=== PATIENT | female | born 1945 | race Caucasian/White ===

== ENCOUNTER → 2016-05-06 | Outpatient (CLI) | payer MEDICARE, OTHER ==
[~2016-05-06] MED LIST: ACHYD1T PO; ACT35T PO; CALC-794 PO; ESTR42.52 VG; FEXO-104 PO; FURO40TA4 PO; KCL20TCR PO; LORA10TA7 PO; LVT.1T PO; MIRT15TA6 PO; MULT-974 PO; OMEG1CAP PO; SULF-222 PO
--- OUTSIDE RECORDS SUMMARY | 2016-05-06 14:15 | XMS REPORT | CCD ---
Author Author BISHOP WATSON Organization Unknown Address [address] [facility] [address] [place], [place] [id number] Care Team Providers Care Riprap Worker Name Role Phone GABINO SOLIZ MD Vital Signs Unknown. Allergies Unknown. Procedures Unknown. History of Immunizations Unknown. Problems Unknown. Results Unknown. Medications Unknown. Medications Administered Unknown. Encounters Encounter Diagnosis Diagnosis Code Start Date CARPAL TUNNEL SYNDROME 3540 08/31/2013 Social History Smoking Status Code Start Date End Date Never smoker [id number] Patient Decision Aids Unknown. Discharge Instructions You were admitted to [facility] on 08/31/2013 with a principle diagnosis of CARPAL TUNNEL SYNDROME. You had the following procedures done: CARPAL TUNNEL SURGERY You were discharged from [facility] on 08/31/2013. Should you have any questions prior to discharge, please contact a member of your healthcare team. If you have left the hospital and have any questions, please contact your primary care physician. Chief Complaint and Reason For Visit Chief Complaint Date of Onset ORT CARPAL TUNNEL Function Status Unknown. Plan of Care Unknown. Referral/Transition of Care Unknown.
--- NOTE | 2016-05-06 18:36 | Diagnostic Imaging Report ---
INDICATION: Followup kidney stone COMPARISON STUDY: KUB from 11-17-12. FINDINGS: Supine view of the abdomen demonstrates interval placement of the abdominal wall mesh. Surgical clips are present in the region of the gallbladder fossa. A 3 mm calculi overlying inferior pole of the left kidney. In 2012, there are several small calculi in this area. IMPRESSION: Small calculi overlies the inferior pole left kidney. Dictated by: Dictated on workstation # [id number]
== END ==
LOC: RAD 14:10
PROVIDERS: ATTEND Urology
DX: N20.0 Calculus of kidney (principal)
CPT/HCPCS: 74000

== ENCOUNTER → 2022-05-03 | Outpatient (CLI) | payer MEDICARE, OTHER ==
--- NOTE | 2022-05-03 15:01 | Diagnostic Imaging Report ---
INDICATION: LEFT BUNDLE BRANCH BLOCK, cardiac pacemaker. On anticoagulation. TECHNIQUE: Color and grayscale sonographic images with duplex Doppler evaluation of the right upper extremity venous system. CORRELATION STUDY: None FINDINGS: There is no intraluminal filling defect within the visualized portion of the internal jugular, subclavian, axillary, brachial and/or basilic veins to suggest thrombus formation. Where applicable, these vessels demonstrate normal response to compression and augmentation. There is no significant soft tissue fluid collection. IMPRESSION: 1. Negative for venous thrombus of the right upper extremity. Dictated by: Dictated on workstation # [id number]
== END ==
LOC: RAD 13:33
PROVIDERS: ATTEND Internal Medicine Interventional Cardiology
DX: I44.1 Atrioventricular block, second degree (principal); I10 Essential (primary) hypertension; E78.2 Mixed hyperlipidemia; Z95.0 Presence of cardiac pacemaker; Z79.01 Long term (current) use of anticoagulants

== ENCOUNTER 2022-07-07 20:40 | Outpatient (CLI) | payer MEDICARE, OTHER | END 2022-07-08 06:00 | disposition home or self-care (01) | LOC: SLEEP 20:40 | PROVIDERS: ATTEND Internal Medicine Pulmonary Disease | DX: G47.10 Hypersomnia, unspecified (principal); G47.9 Sleep disorder, unspecified | CPT/HCPCS: 95811 ==

== ENCOUNTER → 2022-09-20 | Outpatient (CLI) | payer MEDICARE, OTHER ==
--- NOTE | 2022-09-20 18:52 | Diagnostic Imaging Report ---
INDICATION: Pulmonary nodule. TECHNIQUE: Multiple contiguous axial images were obtained through the chest without the use of intravenous contrast. Auto Exposure Controls were utilized during the CT exam to meet ALARA standards for radiation dose reduction. There is no prior study for comparison. FINDINGS: There are no enlarged mediastinal or hilar nodes. There are no enlarged axillary nodes or chest wall lesions. There is no pleural fluid on the right side. There is a minimal trace of pleural fluid on the left side. There is no significant pericardial fluid. Visualized portions of the upper abdomen demonstrate nonocclusive stones in both kidneys. There are multiple calcified granulomata in the spleen and liver. Lung windows demonstrate a nodule in the left upper lobe with central calcifications compatible with granuloma. This nodule measured about 1.1 cm. There is a calcified granuloma in the left lower lobe as well. There is no consolidation or suspicious pulmonary lesion. IMPRESSION: Multifocal old granulomatous changes. No suspicious pulmonary nodule. There is a minimal trace of left pleural fluid. We do not have previous studies for comparison. Dictated by: Dictated on workstation # [id number]
== END ==
LOC: RAD 13:59
PROVIDERS: ATTEND Internal Medicine Pulmonary Disease
DX: J84.10 Pulmonary fibrosis, unspecified (principal); R91.8 Other nonspecific abnormal finding of lung field
CPT/HCPCS: 71250